=== PATIENT | male | born 1995 | race Asian ===

== ENCOUNTER 2017-11-19 02:20 | Emergency (ER) | payer OTHER ==
[~2017-11-19] VITALS: Ht 160 cm; Wt 70.5 kg
[2017-11-19] MEDS ORDERED: SODIUM CHLORIDE 0.9% 1,000 ML IV ONE (02:45)
[2017-11-19] MEDS ORDERED: HALOPERIDOL LACTATE 5 MG/ML VIAL IVP ONE (03:30)
[2017-11-19 07:20] VITALS: BP 109/65
== END 2017-11-19 08:19 | disposition home or self-care (01) ==
LOC: EMS 02:22
DX: F10.129 Alcohol abuse with intoxication, unspecified (principal); R11.10 Vomiting, unspecified; Z88.8 Allergy status to other drugs, medicaments and biological substances
CPT/HCPCS: 36415; 96361; 96374; 99285; G0480; J1630; J7030

== ENCOUNTER 2025-04-21 23:14 | Emergency (ER) | payer OTHER ==
[~2025-04-21] VITALS: Ht 160 cm; Wt 77.3 kg
[2025-04-21 23:17] VITALS: BP 148/91; PULSE 115; RESP 20; TEMP 98.1; O2SAT 98
== END 2025-04-22 00:39 | disposition left against medical advice (07) ==
LOC: EMS 23:15
DX: H57.12 Ocular pain, left eye (principal); Z53.21 Procedure and treatment not carried out due to patient leaving prior to being seen by health care provider

== ENCOUNTER 2025-04-22 14:48 | Emergency (ER) | payer OTHER | END 2025-04-22 16:41 | disposition left against medical advice (07) | LOC: EMS 14:52 | DX: H57.10 Ocular pain, unspecified eye (principal); Z53.21 Procedure and treatment not carried out due to patient leaving prior to being seen by health care provider ==